=== PATIENT | male | born 1965 | race Hispanic/Latino ===

== ENCOUNTER 2018-04-20 08:16 | Emergency (ER) | payer BC ==
[2018-04-20 08:25] VITALS: RESP 18; TEMP 98.2
[2018-04-20] MEDS ORDERED: EPINEPHrine 1 mg/ml (1:1000) Inj IM STA (08:30)
[2018-04-20] MEDS ORDERED: DiphenhydrAMINE 50 mg/ml Inj IVP STA (08:31)
[2018-04-20] MEDS ORDERED: EPINEPHrine 1 mg/ml (1:1000) Inj IM ONE (08:38)
[2018-04-20] MEDS ORDERED: EPINEPHrine 1 mg/ml (1:1000) Inj SC ONE (08:38)
--- NOTE | 2018-04-20 08:41 | ED PDOC ---
Arrival/HPI - General Historian: Patient, Spouse - History of Present Illness Narrative History of Present Illness (Text): 04/20/18 08:37 53 yo M with no significant PMHx presenting to ED with allergic reaction after consuming multi-grain bread ~30 mins prior to arrival. Patient states he has an anaphylactic reaction to peanuts, ate a piece of multigrain bread which he did not realizes contains traces of nuts. He did not have an EpiPen at home, did not take Benadryl, came straight to the ED. He endorses vomiting once before arrival, itchy throat, difficulty breathing, sharp abdominal pain. No hives or rashes, fevers/chills, headaches, chest pain, palpitations. Time/Duration: 1/2 hour Symptom Onset: Sudden Symptom Course: Unchanged Activities at Onset: Light <Miguel Santos - Last Filed: 04/20/18 12:55> <Moris Ibrahim - Last Filed: 04/20/18 13:14> - General Chief Complaint: Allergic Reaction Time Seen by Provider: 04/20/18 08:22 Past Medical History - Provider Review Nursing Documentation Reviewed: Yes - Psychiatric Hx Substance Use: No - Surgical History Other/Comment: Duodenal switch for weight loss <Miguel Santos - Last Filed: 04/20/18 12:55> Family/Social History - Physician Review Nursing Documentation Reviewed: Yes Family/Social History: Unknown Family HX Smoking Status: Never Smoked Hx Alcohol Use: No Hx Substance Use: No <Miguel Santos - Last Filed: 04/20/18 12:55> Allergies/Home Meds <Miguel Santos - Last Filed: 04/20/18 12:55> <Moris Ibrahim - Last Filed: 04/20/18 13:14> Allergies/Adverse Reactions: Allergies nut - unspecified Adverse Reaction (Verified 04/20/18 08:24) ANAPHYLAXIS Penicillins Adverse Reaction (Verified 04/20/18 08:24) ANAPHYLAXIS Review of Systems - Physician Review All systems were reviewed & negative as marked: Yes - Review of Systems Constitutional: Normal Eyes: Normal ENT: Other (itchy throat/throat closing) Respiratory: SOB Cardiovascular: Normal. absent: Chest Pain, Palpitations, Edema, DESAI Gastrointestinal: Abdominal Pain (generalized), Nausea, Vomiting Genitourinary Male: Normal Musculoskeletal: Normal Skin: absent: Rash Neurological: Normal Endocrine: Normal Hemo/Lymphatic: Normal Psychiatric: Normal <Miguel Santos - Last Filed: 04/20/18 12:55> Physical Exam Vital Signs Reviewed: Yes Vital Signs Temp Pulse Resp BP Pulse Ox 04/20/18 08:22 98.2 F 75 18 183/88 H 98 Temperature: Afebrile Blood Pressure: Hypertensive Pulse: Regular Respiratory Rate: Normal Appearance: Positive for: Uncomfortable Pain Distress: Moderate Mental Status: Positive for: Alert and Oriented X 3 - Systems Exam Head: Present: Atraumatic, Normocephalic Pupils: Present: PERRL Extroacular Muscles: Present: EOMI Conjunctiva: Present: Normal Mouth: Present: Moist Mucous Membranes Neck: Present: Normal Range of Motion Respiratory/Chest: Present: Clear to Auscultation, Good Air Exchange. No: Respiratory Distress, Accessory Muscle Use, Wheezes, Rales, Rhonchi Cardiovascular: Present: Regular Rate and Rhythm, Normal S1, S2 Abdomen: No: Tenderness, Distention, Peritoneal Signs, Rebound, Guarding Back: Present: Normal Inspection Upper Extremity: Present: Normal Inspection, Normal ROM, NORMAL PULSES, Capillary Refill < 2s. No: Cyanosis, Edema, Tenderness, Swelling, Erythema Lower Extremity: Present: Normal Inspection, NORMAL PULSES, Normal ROM, Capillary Refill < 2 s. No: Edema, CALF TENDERNESS, Cyanosis, Tenderness, Swelling Neurological: Present: GCS=15, Speech Normal Skin: Present: Warm, Dry, Normal Color. No: Rashes, Erythematous Psychiatric: Present: Alert, Oriented x 3, Normal Insight, Normal Concentration <Miguel Santos - Last Filed: 04/20/18 12:55> Vital Signs Temp Pulse Resp BP Pulse Ox 04/20/18 08:22 98.2 F 75 18 183/88 H 98 - Systems Exam Ears: Present: Normal Pharnyx: Present: Normal. No: ERYTHEMA, EXUDATE, TONSILS ENLARGED, Peritonsilar Swelling, Uvular Deviation, Muffled/Hoarse Voice, Strider Neck: No: Meningeal Signs, MIDLINE TENDERNESS <Moris Ibrahim Last Filed: 04/20/18 13:14> Medical Decision Making ED Course and Treatment: 04/20/18 08:46 Impression: 53 yo M presenting to ED with allergic reaction to multi- grain bread, has anaphylactic rxn to peanuts Plan: --Epi 0.5 mg IM --solumedrol 125 mg IVP --pepcid 20 mg IVP --benadryl 50 mg IVP --NS --zofran --reassess and disposition 04/20/18 12:55 Patient reassessed, feels much improved following course of treatment No hives or rashes noted, no angioedema Patient denies any sore/itchy throat, no sob, no cough - Medication Orders Current Medication Orders: Sodium Chloride (Sodium Chloride 0.9%) 1,000 mls @ 100 mls/hr IV .Q10H MORENA Discontinued Medications Diphenhydramine HCl (Benadryl) 50 mg IVP STAT STA Stop: 04/20/18 08:32 Epinephrine HCl (Epinephrine) 0.3 mg IM STAT STA Stop: 04/20/18 08:31 Famotidine (Pepcid) 20 mg IVP STAT STA Stop: 04/20/18 08:32 Methylprednisolone (Solu-Medrol) 125 mg IVP STAT STA Stop: 04/20/18 08:32 Ondansetron HCl (Zofran Inj) 4 mg IVP STAT STA Stop: 04/20/18 08:27 Last Admin: 04/20/18 08:31 Dose: 4 mg IVP Administration Document 04/20/18 08:31 EQ (Rec: 04/20/18 08:32 EQ [id number]) Charges for Administration # of IVP Administrations 1 <Miguel Santos - Last Filed: 04/20/18 12:55> ED Course and Treatment: 04/20/18 09:10 53 yr old male w/ hx of peanut allergies p/w allergic reaction to multi-grain bread. Pt has not been intubated or admitted for previous allergic reactions, but has had to take epi pen in the past. He notes some mild back of throat tingling. No airway closure or sob however. Given relative recent dosage of nuts will seek epi, H1+H2 yolie, fluids and solumedrol and reasses. 04/20/18 13:12 Pt in NAD with VSS, no throat itchniess or swelling or rashes. Endorsed to stay away from peanut related products as best as possible. Given scripts for steroids, benadryl and epi-pen. Clear for d/c home. - Medication Orders Current Medication Orders: Sodium Chloride (Sodium Chloride 0.9%) 1,000 mls @ 100 mls/hr IV .Q10H MORENA Last Admin: 04/20/18 08:38 Dose: 100 mls/hr eMAR Start Stop Document 04/20/18 08:38 EQ (Rec: 04/20/18 08:38 EQ [id number]) Intravenous Solution Start Date 04/20/18 Start Time 08:38 Discontinued Medications Diphenhydramine HCl (Benadryl) 50 mg IVP STAT STA Stop: 04/20/18 08:32 Last Admin: 04/20/18 08:37 Dose: 50 mg IVP Administration Document 04/20/18 08:37 EQ (Rec: 04/20/18 08:37 EQ [id number]) Charges for Administration # of IVP Administrations 1 Epinephrine HCl (Epinephrine) 0.5 mg IM ONCE ONE Stop: 04/20/18 08:39 Last Admin: 04/20/18 08:41 Dose: 0.5 mg IM Administration Charges Document 04/20/18 08:41 EQ (Rec: 04/20/18 08:41 EQ [id number]) Injection Site MAR Injection Site Left Deltoid Charges for Administration # of IM Administrations 1 Famotidine (Pepcid) 20 mg IVP STAT STA Stop: 04/20/18 08:32 Last Admin: 04/20/18 08:37 Dose: 20 mg IVP Administration Document 04/20/18 08:37 EQ (Rec: 04/20/18 08:37 EQ [id number]) Charges for Administration # of IVP Administrations 1 Methylprednisolone (Solu-Medrol) 125 mg IVP STAT STA Stop: 04/20/18 08:32 Last Admin: 04/20/18 08:37 Dose: 125 mg IVP Administration Document 04/20/18 08:37 EQ (Rec: 04/20/18 08:37 EQ [id number]) Charges for Administration # of IVP Administrations 1 Ondansetron HCl (Zofran Inj) 4 mg IVP STAT STA Stop: 04/20/18 08:27 Last Admin: 04/20/18 08:31 Dose: 4 mg IVP Administration Document 04/20/18 08:31 EQ (Rec: 04/20/18 08:32 EQ [id number]) Charges for Administration # of IVP Administrations 1 <Moris Ibrahim - Last Filed: 04/20/18 13:14> Disposition/Present on Arrival - Present on Arrival Any Indicators Present on Arrival: No History of DVT/PE: No History of Uncontrolled Diabetes: No Urinary Catheter: No History of Decub. Ulcer: No History Surgical Site Infection Following: None - Disposition Have Diagnosis and Disposition been Completed?: Yes Disposition Time: 12:56 Patient Plan: Discharge <Miguel Santos - Last Filed: 04/20/18 12:55> <AlexandriaMoris - Last Filed: 04/20/18 13:14> - Disposition Diagnosis: Anaphylactic reaction Disposition: HOME/ ROUTINE Patient Problems: Current Active Problems Problem Status Onset Anaphylactic reaction Acute Condition: STABLE Discharge Instructions (ExitCare): Anaphylaxis (DC) Print Language: ARMENIAN Additional Instructions: DAVIDE CANTRELL, thank you for letting us take care of you today. Your provider was Moris Ibrahim and you were treated for allerigc reaction. The emergency medical care you received today was directed at your acute symptoms. If you were prescribed any medication, please fill it and take as directed. It may take several days for your symptoms to resolve. Return to the Emergency Department if your sym ptoms worsen, do not improve, or if you have any other problems. Please contact your doctor or call one of the physicians/clinics you have been referred to that are listed on the Patient Visit Information form that is included in your discharge packet. Bring any paperwork you were given at discharge with you along with any medications you are taking to your follow up visit. Our treatment cannot replace ongoing medical care by a primary care provider outside of the emergency department. Thank you for allowing the [facility] team to be part of your care today. Please take prednisone, as prescribed: 50 mg PO daily for a total of 5 days Scripts also provided for Benadryl and EpiPen to be used as needed. Please follow up with your primary care provider for continued care. If symptoms worsen or return, please return to ED. Prescriptions: DiphenhydrAMINE [Benadryl] 25 mg PO Q8 PRN #21 cap PRN Reason: Allergy Symptoms Epinephrine HCl [Epipen Auto-Injector] 0.3 mg MR PRN PRN #2 ml PRN Reason: Anaphylaxis Prednisone 50 mg PO DAILY #5 tablet Referrals: Kenyatta Moncada MD [Medical Doctor] - Follow up with primary Forms: Splice (Syriac)
[2018-04-20] MEDS ORDERED: Sodium Chloride 0.9% 1,000 ML IV SCH (08:45)
[2018-04-20 13:32] VITALS: BP 151/90; PULSE 81; O2SAT 97
== END 2018-04-20 13:32 | disposition home or self-care (01) ==
LOC: ED 08:16
DX: T78.05XA Anaphylactic reaction due to tree nuts and seeds, initial encounter (principal)
CPT/HCPCS: 96372; 96374; 96375; 99283; J0171; J1200; J2405; J2930; J7030